=== PATIENT | female | born 1975 | race Caucasian/White ===

== ENCOUNTER 2018-08-28 09:25 | Day surgery (SDC) | payer OTHER ==
[2018-08-26 13:35] LABS: HEMATOCRIT 41.7 % (36.0-48.0); HEMOGLOBIN 14.4 g/dL (12-16); IMMATURE GRANULOCYTES 0.1 % (0-5); LYMPHOCYTES 22.4 % (15-50); MCH 32.4 pg (26.0-34.0); MCHC 34.5 g/dL (31.0-37.0); MCV 93.9 fL (80.0-100.0); MEAN PLATELET VOLUME 9.8 fL (7.4-10.4); MONOCYTES 7.5 % (2-11); PLATELET COUNT 207 10x3/uL (130-400); RBC 4.44 10x6/uL (4.00-5.40); RDW 12.7 % (11.5-14.5); WBC 6.8 10x3/uL (4.8-10.8)
[2018-08-26 14:52] LABS: APTT 27.6 SECONDS (22.8-39.4); INR 1.02 (0.85-1.17); PROTIME 12.9 SECONDS (11.6-15.0)
[~2018-08-28] VITALS: Ht 165.1 cm; Wt 77.6 kg
[~2018-08-28 09:25] MED LIST: CLARITIN 10 MG10 MG PO
[2018-08-28 10:17] VITALS: BP 118/65; Ht 165.1 cm; Wt 77.6 kg
[2018-08-28 10:46] LABS: HCG URINE NEGATIVE (NEGATIVE)
== END 2018-08-28 16:35 | disposition home or self-care (01) ==
LOC: D.OPS 09:25
PROVIDERS: Anesthesiology; ATTEND Obstetrics & Gynecology
DX: N89.1 Moderate vaginal dysplasia (principal); N88.9 Noninflammatory disorder of cervix uteri, unspecified; N90.60 Unspecified hypertrophy of vulva; Z01.812 Encounter for preprocedural laboratory examination